=== PATIENT | male | born 1955 | race Caucasian/White ===

== ENCOUNTER → 2017-12-03 | Outpatient (CLI) | payer OTHER | LOC: FIMAGING 10:12 | PROVIDERS: ATTEND Neurological Surgery | DX: M54.2 Cervicalgia (principal); Z98.1 Arthrodesis status ==

== ENCOUNTER 2018-03-26 05:31 | Inpatient (IN) | payer OTHER ==
[2018-03-26] MEDS ORDERED: ACETAMINOPHEN 500 MG TAB PO ONE (05:43)
[2018-03-26] MEDS ORDERED: morphINE PF 0.2 MG in SYRINGE INTRATHECAL 1 SYR IT ONE (05:43)
[2018-03-26] MEDS ORDERED: fentaNYL 50 MCG in SYRINGE INTRATHECAL 1 SYR IT ONE (05:43)
[2018-03-26] MEDS ORDERED: ceFAZolin 2 GM/DEXTROSE 100 ML IV ONE (05:43)
[2018-03-26] MEDS ORDERED: GABAPENTIN 300 MG CAP PO ONE (05:43)
[2018-03-26] MEDS ORDERED: LR 1,000 ML IV ONE (05:44)
[2018-03-26] MEDS ORDERED: TRANEXAMIC ACID 1,000 MG in NS 100 ML IV ONE (06:00)
[2018-03-26] MEDS ORDERED: BUPIVACAINE/EPI 0.25% 30 ML SDV ONE ×3 (06:31→13:09)
[2018-03-26] MEDS ORDERED: THROMBIN (BOVINE) 20,000 UNIT VIAL TP ONE ×2 (06:31→08:14)
[2018-03-26] MEDS ORDERED: CHLORHEXIDINE GLUC HIBICLENS 118 ML BTL TP ONE (06:31)
[2018-03-26] MEDS ORDERED: BACITRACIN 50,000 UNITS/10 ML SYR IRR ONE (06:31)
--- NOTE | 2018-03-26 06:48 | PDHPUP ---
History & Physical Update H&P update statement: This history and physical update is based on an assessment of the patient which was completed after admission or registration (within 24 hours), but prior to the surgery/procedure. H&P update: H&P reviewed & patient examined, no change in patient's condition since H&P completed
[2018-03-26] MEDS ORDERED: MIDAZOLAM 2 MG/2 ML VIAL ONE (07:07)
[2018-03-26] MEDS ORDERED: SUCCINYLCHOLINE CHLORIDE 200 MG/10 ML SYR IVP ONE (07:12)
[2018-03-26] MEDS ORDERED: ROCURONIUM 100 MG/10 ML VIAL ONE (07:12)
[2018-03-26] MEDS ORDERED: DEXAMETHASONE 4 MG/ML VIAL ONE (07:15)
[2018-03-26] MEDS ORDERED: ROCURONIUM 50 MG/5 ML VIAL ONE ×2 (07:15→12:12)
--- NOTE | 2018-03-26 07:15 | PDANEPAE ---
ANE History of Present Illness cervical fusion redo ANE Past Medical History - Cardiovascular History Hx Hypertension: Yes Hx Arrhythmias: No Hx Chest Pain: No Hx Coronary Artery / Peripheral Vascular Disease: No Hx CHF / Valvular Disease: No Hx Palpitations: No Cardiovascular History Comment: TOLD IN PAST HE HAS AN OCCAS "FALSE BEAT" - Pulmonary History Hx COPD: No Hx Asthma/Reactive Airway Disease: Yes Hx Recent Upper Respiratory Infection: No Hx Oxygen in Use at Home: No Hx Sleep Apnea: No Sleep Apnea Screening Result - Last Documented: Positive Pulmonary History Comment: SEASONAL/EXERCISE INDUCED ASTHMA - INHALER - Neurologic History Hx Cerebrovascular Accident: No Hx Seizures: No Hx Dementia: No - Endocrine History Hx Diabetes: No Hypothyroid: No Hyperthyroid: No Obesity: moderate - Renal History Hx Renal Disorders: No - Liver History Hx Hepatic Disorders: No - Neurological & Psychiatric Hx Hx Neurological and Psychiatric Disorders: No - Cancer History Hx Cancer: Yes Cancer History Comment: SKIN CA REMOVED - Congenital Disorder History Hx Congenital Disorders: No - GI History GERD: mild Hx Gastrointestinal Disorders: No Gastrointestinal History Comment: GERD - Other Health History Other Health History: ECZEMA IN WINTER LEGS - Chronic Pain History Chronic Pain: Yes (NECK,SHOULDER W/NUMBNESS R HAND) - Surgical History Prior Surgeries: CERVICAL SPINAL FUSION. MEDIAL COMPARTMENT L KNEE REPLACEMENT. GIACOMO KNEE SCOPES X6. GIACOMO CARPAL TUNNEL. L ACHILLES DEBREDEMENT. APPENDECTOMY. DUCTAL CYST BELOW CHIN ANE Review of Systems Review of Systems: - Exercise capacity Exercise capacity: >=4 METS METS (RN): 5 METS ANE Patient History - Allergies Allergies/Adverse Reactions: Penicillins Allergy (Verified 03/12/18 13:36) Other-Enter Comments - Home Medications Home medications: home medication list seen and reviewed Home Medications: Escitalopram Oxalate [Lexapro] 10 mg PO DAILY 03/12/18 [Last Taken 03/26/18] Metoprolol Succinate Xr [Toprol Xl 25 mg (*)] 25 mg PO DAILY 03/12/18 [Last Taken 03/26/18] Omeprazole 20 mg PO DAILY 03/12/18 [Last Taken 03/26/18] amLODIPine BESYLATE [Norvasc 5 mg (*)] 5 mg PO DAILY 03/12/18 [Last Taken ] Albuterol Hfa Anes Only 03/19/18 [Last Taken Unknown] - NPO status NPO Status: no food or drink >8 hours NPO Since - Liquids (Date): 03/26/18 NPO Since - Liquids (Time): 04:30 NPO Since - Solids (Date): 03/25/18 NPO Since - Solids (Time): 17:00 - Anes Hx Anes Hx: no prior problems - Smoking Hx Smoking Status: Former smoker - Family Anes Hx Family Hx Anesthesia Complications: NEG ANE Labs/Vital Signs - Vital Signs Blood Pressure: 155/97 Heart Rate: 59 Respiratory Rate: 16 O2 Sat (%): 94 Height: 182.88 cm Weight: 113.398 kg ANE Physical Exam - Airway Mallampati Score: Class 2 Mouth exam: normal dental/mouth exam - Pulmonary Pulmonary: no respiratory distress - Cardiovascular Cardiovascular: regular rate and rhythym - ASA Status ASA Status: II ANE Anesthesia Plan Anesthesia Plan: general endotracheal anesthesia
[2018-03-26] MEDS ORDERED: fentaNYL 100 MCG/2 ML INJ ONE (07:17)
[2018-03-26] MEDS ORDERED: PROPOFOL/EMULSION 500 MG/50 ML BOTTLE IV ONE ×3 (07:17→11:55)
[2018-03-26] MEDS ORDERED: LIDOCAINE 2% 5 ML SDV ONE (07:17)
[2018-03-26] MEDS ORDERED: PROPOFOL 200 MG/20 ML VIAL ONE (07:17)
[2018-03-26] MEDS ORDERED: REMIFENTANIL HCL 1 MG VIAL ONE ×2 (07:17→09:40)
[2018-03-26] MEDS ORDERED: ceFAZolin 1 GM VIAL ONE (11:45)
[2018-03-26] MEDS ORDERED: REMIFENTANIL HCL 2 MG VIAL ONE (11:55)
[2018-03-26] MEDS ORDERED: ONDANSETRON 4 MG/2 ML VIAL ONE (13:54)
[2018-03-26] MEDS ORDERED: HYDROmorphONE/DILAUDID 2 MG/ML INJ ONE ×2 (14:20→15:11)
[2018-03-26] MEDS ORDERED: ONDANSETRON 4 MG/2 ML VIAL IVP PRN ×2 (14:31→14:42)
[2018-03-26] MEDS ORDERED: NALOXONE HCL 0.4 MG/ML INJ IVP PRN ×3 (14:31→14:59)
[2018-03-26] MEDS ORDERED: LR 500 ML IV PRN (14:31)
[2018-03-26] MEDS ORDERED: ALBUTEROL 3 ML DEYVIAL IH PRN (14:31)
[2018-03-26] MEDS ORDERED: BISACODYL 10 MG SUPP PR PRN (14:42)
[2018-03-26] MEDS ORDERED: diphenhydrAMINE 25 MG CAP PO PRN (14:42)
[2018-03-26] MEDS ORDERED: LACTULOSE 20 GM/30 ML UDCUP PO PRN (14:42)
[2018-03-26] MEDS ORDERED: MAGNESIUM HYDROXIDE 30 ML UDCUP PO PRN (14:42)
[2018-03-26] MEDS ORDERED: morphINE PCA 30 MG/30 ML PCA IV PRN (14:42)
[2018-03-26] MEDS ORDERED: ONDANSETRON DISINTEGRATING 4 MG TAB PO PRN (14:42)
--- NOTE | 2018-03-26 14:50 | SOAPPROG ---
PHILLIP Progress Note Assessment/Plan: Assessment: 63 yo M sp C7/T!, redo C4/5, C6/7 ACDF and C3-T1 posterior instrumentation/fusion Plan: stable to 3N Bonnie will fit a hard collar Jpx 2 please call with neuro changes 03/26/18 14:48 Subjective: + neck pain, no arm pain. Objective: Vital Signs Temp Pulse Resp BP Pulse Ox 36.6 C 59 L 16 155/97 H 94 03/19/18 15:33 03/26/18 08:17 03/26/18 08:17 03/26/18 08:17 03/26/18 08:17 somnolent PERRL, no facial droop 5/5 + light touch ICD10 Worksheet Patient Problems: Problems Problem Status Onset Fusion of spine of cervical region Acute - ICD10 Problem Qualifiers (1) Fusion of spine of cervical region
[2018-03-26] MEDS ORDERED: LABETALOL HCL 20 MG/4 ML INJ IVP PRN (14:59)
--- NOTE | 2018-03-26 14:59 | POSTANESTH ---
Post Anesthetic Evaluation Cardiovascular Status: Normal, Stable, Tx Hyper/Hypo-tension Respiratory Status: Normal, Stable Level of Consciousness/Mental Status: Can Participate in Eval Pain Control: Adequate, Prn Tx Ordered Nausea/Vomiting Control: Adequate, Prn Tx Ordered Complications Possibly Related to Anesthesia: None Noted
[2018-03-26] MEDS ORDERED: LABETALOL HCL 5 MG/ML 20 ML MDV ONE (15:03)
[2018-03-26] MEDS: LABETALOL HCL 5 MG/ML 20 ML MDV IVP PRN ×2 (15:05→16:36)
[2018-03-26] MEDS: HYDROmorphONE/DILAUDID 2 MG/ML INJ IVP PRN ×4 (15:12→17:40)
[2018-03-26] MEDS ORDERED: DIAZEPAM 5 MG/ML 1 ML SYR ONE (15:34)
[2018-03-26] MEDS: DIAZEPAM 5 MG/ML 1 ML SYR IVP PRN ×2 (15:38→16:19)
--- NOTE | 2018-03-26 16:17 | PDMN ---
Medical Necessity Medical necessity: MCG: S330 posterior cervical fusion 2 days: OP: C4-T1 cervical fusion C3-T1 posterior fusion--AUTH [id number] APPROVED IN
--- NOTE | 2018-03-26 17:00 | GOP ---
DATE OF OPERATION: 03/26/2018 SURGEON: Thomas Neal MD NEUROSURGEON: Thomas Neal MD SLP TEACHER: Casper Carbajal PA-C ANESTHESIA: General endotracheal. 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 POSTOPERATIVE DIAGNOSIS: Multilevel cervical nonunion/pseudoarthrosis with hardware failure and prog ressive weakness in the right upper extremity, and myelopathy. PROCEDURE PERFORMED: C3 through T1 posterior segmental (lateral mass screw and pedicle screw) fixati on and posterolateral fusion with local autograft and bone morphogenic protein. Use of intraoperative microscopy, fluoroscopy, and computer volumetric stereotactic navigation with intraoperative neuroph ysiologic testing. Injection of subcutaneous and intramuscular local anesthesia for postoperative kenneth n control. FINDINGS: ESTIMATED BLOOD LOSS: 100 cc. INDICATIONS: The patient is a 62-year-old man with intractable neck pain and right upper extremity w eakness, secondary to multilevel nonunion/pseudoarthrosis at C4-5 and C6-7, after a C4 to C7 anterior cervical diskectomy and fusion many years ago at outside hospital. He also has severe neuroforaminal encroachment at the C7-T1 level with progressive weakness, and presents now for removal and replacem ent of the anterior cervical plate and redo fusions and posterior cervical stabilization and reinforc ement of the fusion. DESCRIPTION OF PROCEDURE: After the anterior portion of the procedure was completed, the patient was repositioned prone with the head in the radiolucent Gannon hogshead hand. The posterior cervical reg ion was prepped and draped in a sterile fashion. After fluoroscopic localization of correct levels, t he subcutaneous and intramuscular tissues were infiltrated with local anesthesia. A midline linear incision was then created from approximately C3 through T1. This was carried down to the fascial layer, which was incised using monopolar electrocautery and carried in the subperiosteal plane along the spinous processes and lamina bilaterally. Intraoperative fluoroscopy was again utili zed to verify the correct levels. Following this, the dissection was carried out over the facet joint s. The O-arm neuronavigational system was then brought in and using computer volumetric stereotactic navigation, lateral mass screws were placed at C3 through C6 with pedicle screws at C7 and T1. Each i ndividual screw was tested neurophysiologically with monopolar electrostimulation and interpretation of the potentials by the surgeon. The O-arm neuronavigational system was also utilized to verify good position of the screws. Rods were then placed and secured under maximal lordosis and the facet joint s and lateral masses were decorticated from C3 through T1. The local autograft remaining from the ant erior portion of the operation and the drilled out posterior portion, along with bone morphogenic pro tein was then placed out laterally for posterolateral fusion from C3 through T1. The subcutaneous and intramuscular tissues were re-infiltrated with local anesthesia. A drain was placed, and the wound w as closed in a layered fashion using interrupted Vicryl sutures, followed by Steri-Strips on the skin . COMPLICATIONS: None. DISPOSITION: The patient is currently in the process of being repositioned for extubation. /[id number]/MODL
--- NOTE | 2018-03-26 17:15 | GOP ---
DATE OF OPERATION: 03/26/2018 SURGEON: Thomas Neal MD NEUROSURGEON: Thomas Neal MD. CONSTRUCTION PROJECT MGR: Casper Carbajal PA-C. ANESTHESIA: General endotracheal. PREOPERATIVE DIAGNOSIS: C4-5 and C6-7 nonunion with severe right C7-T1 neural foraminal impingement and progressive weakness. C7-T1 spinal stenosis with progressive cervical myelopathy. POSTOPERATIVE DIAGNOSIS: C4-5 and C6-7 nonunion with severe right C7-T1 neural foraminal impingement and progressive weakness. C7-T1 spinal stenosis with progressive cervical myelopathy. PROCEDURE PERFORMED: Removal of anterior cervical plate from C4 through C7 with exploration of spina l fusion at C5-6. Complete C4-5, C6-7, and C7-T1 anterior cervical diskectomy and arthrodesis with 3 structural PEEK interbody spacers and local autograft. Placement of an Integra anterior cervical plat e from C4 through T1. Use of intraoperative microscopy and fluoroscopy. FINDINGS: ESTIMATED BLOOD LOSS: 150 cc. INDICATIONS: The patient is a 62-year-old man who underwent a prior multilevel anterior cervical fus ion under the care of Dr. Mcdermott about 10 years ago who developed a nonunion at C4-5 and C6-7 with i ntractable pain and progressive weakness in his right upper extremity that was also related to neural foraminal encroachment at the C7-T1 level on the right, along with central canal stenosis. He presen ts now for removal of the prior hardware, exploration of spinal fusion, redo fusions, and a new diske ctomy and fusion at C7-T1 with reinforcement posteriorly. DESCRIPTION OF PROCEDURE: After informed consent was obtained, the patient was taken to the operatin g room and placed in the supine position with the head in the halter retractor system. The anterior c ervical region was prepped and draped in a sterile fashion. After fluoroscopic localization of the co rrect level, the subcutaneous and intramuscular tissues were infiltrated with local anesthesia. A horizontal incision was then created at approximately the level of the C6 vertebral body. This was carried through the platysma using the monopolar electrocautery and carried in the avascular plane be tween the sternocleidomastoid and carotid sheath laterally and the strap muscles, trachea, and esopha missael medially down to the prevertebral fascia, which was carefully incised with Metzenbaum scissors. Note that the patient is very large with a very thick neck and the exposure was extremely difficult, especially given the fact that this is a redo surgery and there was an extensive amount of scar tissu e. There was also bony osteophytes growing over the plate. This all required an extensive amount of d issection, drilling, and rongeuring. The exposure took approximately 3 times as long as normal. Plate was also very difficult to remove. There were 3 broken screws and 1 of the screws also stripped out, and needed to be drilled out in order to get the plate off. Eventually, this was removed and the fusions were evaluated at C4-5, C5-6 and C6-7, and C4-5 and C6-7 were definitely nonunions and these were both drilled out and the prior PEEK spacer removed and the remaining bone was re-prepared and drilled out, and two 12 mm structural peek spacers with local auto graft in the center were placed in the C4-5 and C6-7 interspaces. A new complete anterior cervical di skectomy was then performed with C7-T1 under distraction. Bilateral foraminotomies were performed wit h special attention directed to the right neuroforamen, which was thoroughly decompressed after remov al of posterior longitudinal ligament. All the areas were copiously irrigated with antibiotic irrigation. Meticulous hemostasis was achieved . The C7-T1 level endplates were prepared and an appropriately sized 11 mm structural PEEK interbody spacers placed in the interspace under fluoroscopic image guidance. Following verification of good po sition of all the new peek spacers, the distraction was removed an appropriately sized Integra anteri or cervical plate was placed and secured from C4 through T1 with combination of self drilling and melvin f tapping screws. After verification of good position of the plate, screws, and interbody spacers using biplanar fluoro scopy, the locking mechanisms were engaged. A drain was placed. The subcutaneous and intramuscular ti ssues were re-infiltrated with local anesthesia, and the wound was closed in a layered fashion using interrupted Vicryl sutures, followed by Steri-Strips on the skin. COMPLICATIONS: None. DISPOSITION: The patient was repositioned prone for the posterior portion of the operation. /[id number]/MODL
[2018-03-26] MEDS: ceFAZolin 2 GM/DEXTROSE 100 ML IV SCH ×2 (18:01→23:24)
[2018-03-26] MEDS ORDERED: ALBUTEROL 60 PUFFS/8 GM MDI IH PRN (19:20)
[2018-03-26] MEDS: POLYETHYLENE GLYCOL 3350 17 GM PKT PO SCH (19:53)
[2018-03-26] MEDS: SENNOSIDES/DOCUSATE SODIUM TAB PO SCH (20:30)
[2018-03-26] MEDS: FAMOTIDINE 20 MG TAB PO SCH (20:35)
[2018-03-26] MEDS: NS 1,000 ML IV SCH (21:06)
[2018-03-26] MEDS: METHOCARBAMOL 750 MG TAB PO PRN (21:48)
[2018-03-27] MEDS: POLYETHYLENE GLYCOL 3350 17 GM PKT PO SCH ×4 (01:09→20:38)
[2018-03-27] MEDS: oxyCODONE IR 5 MG TAB PO PRN ×5 (05:07→20:38)
[2018-03-27 06:00] LABS: PLATELET COUNT 214 10^3/uL (150-400)
[2018-03-27] MEDS: METHOCARBAMOL 750 MG TAB PO PRN ×2 (06:42→18:29)
[2018-03-27] MEDS: NS 1,000 ML IV SCH (07:33)
--- NOTE | 2018-03-27 08:08 | NEUSURGPN ---
Date of Surgery: 03/26/18 Post Op Day: 1 Assessment/Plan: 63 yo M sp C7/T1, redo C4/5, C6/7 ACDF and C3-T1 posterior instrumentation/ fusion - neuro stable - pain control - hard collar on at all times - continue both KUMAR drains - PT/OT - postop x-rays pending - SCDs/TEDs, Lovenox to start on 03/[address] Blackmon Subjective: Having pain at the tops of the shoulders and around the shoulder blades. Objective: Awake. Alert. PERRL. EOMI Facial expression symmetrical Muscle strength full at 5/5 Sensation intact Catheter Insertion Date: 03/26/18 - Physician Discussed Patient with DrKarina: Val Neurosurgery Physical Exam - Vitals, I&O, Labs I and O 03/26/18 03/27/18 03/28/18 05:59 05:59 05:59 Intake Total 2660 350 Output Total 1460 200 Balance 1200 150 Weight 113.398 kg Intake: Oral (ml) 60 350 IV Intake (ml) 2600 Output: Urine (ml) 925 200 Catheter 925 200 Estimated Blood Loss (ml) 100 KUMAR Drain Output (ml) 435 Left Anterior Dante 165 Trinh Left Posterior Neck 270 Dante Trinh Other: Number of Emesis 2 Occurrences Vital Signs Temp Pulse Resp BP Pulse Ox 36.8 C 100 14 160/105 H 95 03/27/18 07:22 03/27/18 07:22 03/27/18 07:22 03/27/18 07:22 03/27/18 07:22 Laboratory Results 03/27/18 05:17 03/27/18 05:17 ICD10 Worksheet Patient Problems: Problems Problem Status Onset Fusion of spine of cervical region Acute
[2018-03-27] MEDS: METOPROLOL SUCCINATE XR 25 MG TAB PO SCH (08:14)
[2018-03-27] MEDS: FAMOTIDINE 20 MG TAB PO SCH ×2 (08:15→20:38)
[2018-03-27] MEDS: ESCITALOPRAM OXALATE 10 MG TAB PO SCH (08:15)
[2018-03-27] MEDS: PANTOPRAZOLE SODIUM 40 MG TAB PO SCH (08:15)
[2018-03-27] MEDS: amLODIPine BESYLATE 5 MG TAB PO SCH (08:15)
[2018-03-27] MEDS: SENNOSIDES/DOCUSATE SODIUM TAB PO SCH ×2 (08:37→20:38)
--- NOTE | 2018-03-27 12:02 | ASMTCMCOM ---
CM Note CM Note Notes: Pt had planned spinal surgery, resides with . Pt pre-arranged with [facility], pt declines. PT rec home/outpatient. Anticipate pt will d/c when medically stable. No CM d/c needs identified. CM available for changes/needs. Date Signed: 03/27/2018 12:02 PM Electronically Signed By:PAUL Lr
[2018-03-28] MEDS: oxyCODONE IR 5 MG TAB PO PRN ×5 (00:15→19:52)
[2018-03-28] MEDS: METHOCARBAMOL 750 MG TAB PO PRN ×4 (00:15→19:51)
[2018-03-28] MEDS: amLODIPine BESYLATE 5 MG TAB PO SCH (08:51)
[2018-03-28] MEDS: ESCITALOPRAM OXALATE 10 MG TAB PO SCH (08:51)
[2018-03-28] MEDS: PANTOPRAZOLE SODIUM 40 MG TAB PO SCH (08:51)
[2018-03-28] MEDS: METOPROLOL SUCCINATE XR 25 MG TAB PO SCH (08:51)
[2018-03-28] MEDS: FAMOTIDINE 20 MG TAB PO SCH ×2 (08:52→19:52)
[2018-03-28] MEDS: SENNOSIDES/DOCUSATE SODIUM TAB PO SCH ×2 (08:52→19:51)
[2018-03-28] MEDS: POLYETHYLENE GLYCOL 3350 17 GM PKT PO SCH ×3 (08:52→19:51)
--- NOTE | 2018-03-28 12:34 | NEUSURGPN ---
Date of Surgery: 03/26/18 Post Op Day: 2 Assessment/Plan: 63 yo M sp C7/T1, redo C4/5, C6/7 ACDF and C3-T1 posterior instrumentation/ fusion POD#2 Plan: - neuro stable - pain control - hard collar on at all times - remove bother KUMAR drains - PT/OT eval for dispo in the next 1-2 days - postop x-rays stable hardware placement - SCDs/TEDs, Lovenox to start on 03/[address] Blackmon Subjective: Expected posterior cervical incision pain Objective: AxO x4 MCKEON x4 5/5 BUE Incision x2 CDI with steri strips, drainage on dressing Neuro Check Frequency: per routine Urinary Catheter in Place: No Catheter Insertion Date: 03/26/18 - Physician Discussed Patient with : Val Neurosurgery Physical Exam - Vitals, I&O, Labs I and O 03/27/18 03/28/18 03/29/18 05:59 05:59 05:59 Intake Total 2660 2923 Output Total 1460 385 Balance 1200 2538 Weight 113.398 kg Intake: Oral (ml) 60 1950 IV Intake (ml) 2600 IV Infused (ml) 973 Ns 1,000 ml @ 100 mls/hr 973 IV CONT PATY Rx#: [id number] Output: Urine (ml) 925 200 Catheter 925 200 Estimated Blood Loss (ml) 100 KUMAR Drain Output (ml) 435 185 Left Anterior Dante 165 40 Trinh Left Posterior Neck 270 145 Dante Trinh Other: Number of Voids Catheter 1 Toilet 1 1 Number of Emesis 2 Occurrences Vital Signs Temp Pulse Resp BP Pulse Ox 37.0 C 90 16 158/97 H 94 03/28/18 12:00 03/28/18 12:00 03/28/18 12:00 03/28/18 12:00 03/28/18 12:00 Laboratory Results 03/27/18 05:17 03/27/18 05:17 ICD10 Worksheet Patient Problems: Problems Problem Status Onset Fusion of spine of cervical region Acute
[2018-03-28] MEDS: CETIRIZINE 10 MG TAB PO SCH (13:37)
[2018-03-29] MEDS: METHOCARBAMOL 750 MG TAB PO PRN (03:47)
[2018-03-29] MEDS: oxyCODONE IR 5 MG TAB PO PRN ×2 (03:47→09:19)
[2018-03-29 07:54] VITALS: BP 147/96
--- NOTE | 2018-03-29 08:11 | NEUSURGPN ---
Date of Surgery: 03/26/18 Post Op Day: 3 Assessment/Plan: 63 yo M sp C7/T1, redo C4/5, C6/7 ACDF and C3-T1 posterior instrumentation/ fusion POD#3 Plan: - neuro stable - pain control - hard collar on at all times - KUMAR x2 removed yesterday - PT/OT - postop x-rays stable hardware placement -Discharge home today - SCDs/TEDs, Lovenox to start on 03/[address] Blackmon Subjective: pain well controlled, no complaints Objective: AxO x4 MCKEON x4 5/5 BLE, BUE Dressings/incisions CDI-steri strips in place Warren to pin sites on head-CDI Neuro Check Frequency: per routine Urinary Catheter in Place: No Catheter Insertion Date: 03/26/18 - Physician Discussed Patient with : Val Neurosurgery Physical Exam - Vitals, I&O, Labs I and O 03/28/18 03/29/18 03/30/18 05:59 05:59 05:59 Intake Total 2923 300 400 Output Total 385 50 Balance 2538 250 400 Intake: Oral (ml) 1950 300 400 IV Infused (ml) 973 Ns 1,000 ml @ 100 mls/hr 973 IV CONT PATY Rx#: [id number] Output: Urine (ml) 200 Catheter 200 KUMAR Drain Output (ml) 185 50 Left Anterior Dante 40 Trinh Left Posterior Neck 145 50 Datne Trinh Other: Number of Voids Catheter 1 Toilet 1 1 1 Vital Signs Temp Pulse Resp BP Pulse Ox 37.0 C 87 16 147/96 H 93 03/29/18 07:51 03/29/18 07:51 03/29/18 07:51 03/29/18 07:51 03/29/18 07:51 Laboratory Results 03/27/18 05:17 03/27/18 05:17 ICD10 Worksheet Patient Problems: Problems Problem Status Onset Fusion of spine of cervical region Acute
[2018-03-29] MEDS ORDERED: ENOXAPARIN 40 MG/0.4 ML SYR SC SCH (09:00)
[2018-03-29] MEDS: SENNOSIDES/DOCUSATE SODIUM TAB PO SCH (09:18)
[2018-03-29] MEDS: amLODIPine BESYLATE 5 MG TAB PO SCH (09:18)
[2018-03-29] MEDS: ESCITALOPRAM OXALATE 10 MG TAB PO SCH (09:18)
[2018-03-29] MEDS: CETIRIZINE 10 MG TAB PO SCH (09:19)
[2018-03-29] MEDS: PANTOPRAZOLE SODIUM 40 MG TAB PO SCH (09:19)
[2018-03-29] MEDS: POLYETHYLENE GLYCOL 3350 17 GM PKT PO SCH (09:20)
[2018-03-29] MEDS: METOPROLOL SUCCINATE XR 25 MG TAB PO SCH (09:20)
[2018-03-29] MEDS: FAMOTIDINE 20 MG TAB PO SCH (09:20)
--- NOTE | 2018-04-01 11:12 | GDS ---
ADMISSION DIAGNOSIS: C7-T1 degenerative disk disease with severe foraminal stenosis and cervical pse udoarthrosis. DISCHARGE DIAGNOSES: Status post C7-T1 anterior cervical diskectomy and fusion with a redo C4-5, C6- 7 anterior cervical diskectomy and fusion, with a C4 to T1 plating and C3 to T1 posterior instrumenta tion and fusion. HISTORY/PHYSICAL: Please see admission history and physical. COURSE: Patient is a 63-year-old male who had previously undergone an anterior cervical diskectomy a nd fusion by Dr. Mcdermott. He presented with neck pain and progressive right hand weakness that was t hought to be related to his multilevel cervical nonunion and severe C7-T1 degenerative disk disease w ith foraminal stenosis. He was taken to the operating room on 03/26/2018, where he underwent his C4 to C7 plate removal with a C7-T1 and redo C4-5 and C6-7 anterior cervical diskectomy and fusion, with a C4 to T1 plating and a C3 to T1 posterior instrumentation and fusion. There were no intraoperativ e complications, and he was admitted for further care. He made fair progress with physical therapy a nd occupational therapy. He was subsequently ambulating on his own and tolerating a regular diet. T he patient was discharged home in stable condition on 03/29/2018. Patient was discharged with cervic al fusion instructions and recommended he return for a neurosurgical followup appointment in 01-25 . /[id number]/MODL
== END 2018-03-29 12:30 | disposition home or self-care (01) | DRG 455 ==
LOC: F3N 05:31
PROVIDERS: ADMIT Neurological Surgery; ATTEND Neurological Surgery
DX: M96.0 Pseudarthrosis after fusion or arthrodesis (principal); M50.320 Other cervical disc degeneration, mid-cervical region, unspecified level; I10 Essential (primary) hypertension; K21.9 Gastro-esophageal reflux disease without esophagitis; Z98.1 Arthrodesis status; Z85.820 Personal history of malignant melanoma of skin
CPT/HCPCS: 92610-GN; 97110-GO; 97116-GP; 97161-GP; 97166-GO; 97535-GO; C1713; C1762; J0330; J0690; J1100; J1170; J1650; J2250; J2270; J2274; J2405; J2704; J3010; J3360